=== PATIENT | male | born 1955 | race Caucasian/White ===

== ENCOUNTER 2018-02-13 01:52 | Outpatient (CLI) | payer BC, SELFPAY ==
[2018-02-13 11:39] LABS: Cholesterol 194 mg/dL (50-200); HDL Cholesterol 42 mg/dL (40-60); LDL CHOLESTEROL 147 mg/dL (<100); TSH 1.47 uIU/mL (0.358-3.74); Triglyceride 79 mg/dL (30-150)
== END 2018-02-13 02:12 ==
PROVIDERS: PCP Emergency Medicine; Visit Provider Emergency Medicine
DX: E78.5 Hyperlipidemia, unspecified (principal); E03.9 Hypothyroidism, unspecified
CPT/HCPCS: 36415; 80061; 83721; 84443

== ENCOUNTER 2019-01-29 01:34 | Outpatient (CLI) | payer BC, SELFPAY ==
[2019-01-29 11:32] LABS: Calculated LDL 153 mg/dL; Cholesterol 216 mg/dL (50-200); HDL Cholesterol 40 mg/dL (40-60); TSH 3.53 uIU/mL (0.36-3.74); Triglyceride 118 mg/dL (30-150)
[2019-01-29 12:10] LABS: Hemoglobin A1C 5.1 % (4.5-6.2)
[2019-02-01 10:56] LABS: PSA, Screening 0.3 ng/ml (0-4.5)
== END 2019-01-29 01:54 ==
PROVIDERS: Nurse Practitioner; PCP Emergency Medicine; Visit Provider Emergency Medicine
DX: E03.9 Hypothyroidism, unspecified (principal); Z13.220 Encounter for screening for lipoid disorders; Z13.1 Encounter for screening for diabetes mellitus; Z13.6 Encounter for screening for cardiovascular disorders; Z12.5 Encounter for screening for malignant neoplasm of prostate
CPT/HCPCS: 36415; 80061; 84153; 83036; 84443

== ENCOUNTER 2020-05-10 02:44 | Outpatient (CLI) | payer OTHER, SELFPAY ==
[2020-05-10 13:44] LABS: CREATININE 0.94 mg/dL (0.70-1.30); Calculated LDL 111 mg/dL (<100); Cholesterol 167 mg/dL (<200); HDL Cholesterol 44 mg/dL (40-60); Potassium 4.2 mmol/L (3.5-5.1); TSH 2.56 uIU/mL (0.36-3.74); Triglyceride 64 mg/dL (<150)
== END 2020-05-10 03:04 ==
PROVIDERS: PCP Nurse Practitioner; Visit Provider Nurse Practitioner
DX: I10 Essential (primary) hypertension (principal); E03.9 Hypothyroidism, unspecified; E78.5 Hyperlipidemia, unspecified
CPT/HCPCS: 36415; 80061; 82565; 84132; 84443

== ENCOUNTER 2021-02-20 08:43 | Outpatient (CLI) | payer OTHER, SELFPAY ==
[2021-02-20 13:42] LABS: CREATININE 0.9 mg/dL (0.70-1.30); Calculated LDL 87 mg/dL (<100); Cholesterol 146 mg/dL (<200); HDL Cholesterol 45 mg/dL (40-60); Potassium 5.2 mmol/L (3.5-5.1); TSH 11.59 uIU/mL (0.36-3.74); Triglyceride 70 mg/dL (<150)
[2021-02-20 22:40] LABS: PSA, Screening 0.3 ng/mL (0.0-4.5)
== END 2021-02-20 08:44 | disposition home or self-care (01) ==
LOC: LOS 08:43
PROVIDERS: PCP Nurse Practitioner; Visit Provider Nurse Practitioner
DX: I10 Essential (primary) hypertension (principal); E03.9 Hypothyroidism, unspecified; E78.2 Mixed hyperlipidemia; Z12.5 Encounter for screening for malignant neoplasm of prostate; Z80.42 Family history of malignant neoplasm of prostate
CPT/HCPCS: 36415; 80061; 84153; 82565; 84132; 84443

== ENCOUNTER 2021-04-10 03:05 | Outpatient (CLI) | payer OTHER, SELFPAY | END 2021-04-10 03:06 | disposition home or self-care (01) | LOC: LBO 03:05 | PROVIDERS: PCP Nurse Practitioner; Visit Provider Nurse Practitioner | DX: E03.9 Hypothyroidism, unspecified (principal) | CPT/HCPCS: 36415; 84443 ==

== ENCOUNTER 2022-03-14 03:45 | Outpatient (CLI) | payer OTHER, SELFPAY ==
[2022-03-14 14:19] LABS: CREATININE 0.8 mg/dL (0.70-1.30); Calculated LDL 60 mg/dL (<100); Cholesterol 123 mg/dL (<200); Estimated GFR 98.83 (mL/min/1.73m2); HDL Cholesterol 43 mg/dL (40-60); Potassium 4.1 mmol/L (3.5-5.1); TSH (W/Ref FT4) 2.64 uIU/mL (0.36-3.74); Triglyceride 100 mg/dL (<150)
== END 2022-03-14 03:46 | disposition home or self-care (01) ==
LOC: LBO 03:45
PROVIDERS: PCP Nurse Practitioner Family; Visit Provider Nurse Practitioner Family
DX: I10 Essential (primary) hypertension (principal); E03.9 Hypothyroidism, unspecified; E78.5 Hyperlipidemia, unspecified
CPT/HCPCS: 36415; 80061; 82565; 84132; 84443

== ENCOUNTER 2023-03-14 09:35 | Outpatient (CLI) | payer MEDICARE, OTHER, SELFPAY ==
[2023-03-14 13:10] LABS: Calculated LDL 77 mg/dL (<100); Cholesterol 136 mg/dL (<200); Estimated GFR 83.52 (mL/min/1.73m2); HDL Cholesterol 41 mg/dL (40-60); Potassium 4.1 mmol/L (3.5-5.1); TSH (W/Ref FT4) 6.45 uIU/mL (0.36-3.74); Triglyceride 93 mg/dL (<150)
== END 2023-03-14 09:36 | disposition home or self-care (01) ==
PROVIDERS: PCP Nurse Practitioner Family; Referring Provider Nurse Practitioner Family; Visit Provider Nurse Practitioner Family
DX: E78.5 Hyperlipidemia, unspecified (principal); I10 Essential (primary) hypertension; E03.9 Hypothyroidism, unspecified
CPT/HCPCS: 36415; 80061; 82565; 84132; 84439; 84443

== ENCOUNTER → 2023-03-20 01:22 | Outpatient (CLI) | payer MEDICARE, OTHER, SELFPAY ==
--- NOTE | 2023-03-20 08:45 | DI.CTLCSR_ITS ---
Exam(s) CT CHEST LUNG CANCER SCREEN EXAM: CT CHEST LUNG CANCER SCREEN CLINICAL HISTORY: Screening for lung cancer,FORMER SMOKER, Z87.891 TECHNIQUE: Imaging Protocol: Axial computed tomography images with coronal and sagittal reformatted images were created and reviewed. Low dose screening protocol. COMPARISON: No exams were available for comparison FINDINGS: Tracheobronchial tree: No bronchiectasis or mucus plugging.. Mediastinum and Fabienne: No dominant adenopathy or fluid collection. Pulmonary parenchyma: No consolidation or dominant measurable mass. Mild emphysematous changes. Lung Nodules: None. Pleura: No effusion. No pneumothorax. Heart: The heart is mildly dilated. Mild coronary artery calcifications are seen. Aorta: Thoracic aorta non-dilated. Upper abdomen: Gallstones. Bones: Unremarkable for age. Soft Tissues: Unremarkable. IMPRESSION: No suspicious pulmonary nodules. Lung RADS Cat 1 - Negative: No nodules and definitely benign nodules Lung-RADS 1.0 CATEGORIES: Category 0 - Prior chest CT exam(s) being located for comparison. Category 1 - Annual screening in 12 months. No nodules or definitely benign nodules. Category 2 - Annual screening in 12 months. Benign appearance. Nodules with low likelihood of becomin g active cancer. Category 3 - 6-month follow-up. Probably benign. Short-term follow-up suggested. Nodules with low lik elihood of becoming active cancer. Category 4A - 3-month follow-up and CT/PET if >8 mm in size. Suspicious finding. Findings which requi re additional testing. Category 4B - Findings which require additional testing and tissue sampling. Category 4X - Category 3 or 4 nodules with additional features or imaging findings that increases the suspicion of malignancy. Modifier S- Potentially clinically significant findings (non lung cancer) RADIATION DOSE DELIVERED: Total DLP DATA REPOSITORY: All CT scans at this facility are submitted to the National Radiology Data Registry (NRDR) Dose Index Registry (DIR) with the [employer] (ACR). RADIATION OPTIMIZATION: All CT scans at this facility use at least one of these dose optimization te chniques: automated exposure control; mA and/or kV adjustment per patient size (includes targeted exa ms where dose is matched to clinical indication); or iterative reconstruction.
== END ==
PROVIDERS: PCP Nurse Practitioner Family; Visit Provider Nurse Practitioner Family
DX: Z87.891 Personal history of nicotine dependence (principal); Z12.2 Encounter for screening for malignant neoplasm of respiratory organs
CPT/HCPCS: 71271

== ENCOUNTER → 2023-04-23 09:26 | Outpatient (BNVA) | payer MEDICARE, OTHER, SELFPAY | PROVIDERS: PCP Nurse Practitioner Family; Referring Provider Nurse Practitioner Family; Visit Provider Physical Therapy Assistant | DX: Z12.11 Encounter for screening for malignant neoplasm of colon (principal) ==

== ENCOUNTER 2023-05-02 09:49 | Day surgery (SDC) | payer MEDICARE, OTHER, SELFPAY ==
--- NOTE | 2023-05-01 16:54 | W.ANESPRE ---
General Info Date of Service Date Performed: 05/02/23 Height: 5 ft 7 in Weight: 88.904 kg Body Mass Index (BMI): 30.7 Surgical Procedure: Operation Date: 05/02/23 11:35 Proposed Procedure Side Surgeon p Colonoscopy Gray Conway MD Meds Allergies and Home Medications Allergies Allergy/AdvReac Type Severity Reaction Status Date / Time No Known Allergies Allergy Verified 05/02/23 10:17 Home Medication Medication Instructions Recorded aspirin 325 mg tablet 325 mg PO DAILY 07/20/12 vit C 226 mg-vit E 90 mg-copper 1 ea PO BID 02/09/16 0.8 mg-zinc oxide-lutein 5 mg capsule (PreserVision Lutein) glucosamine 750 mg-chondroit 100 2 tab PO DAILY 02/15/20 mg-msm-D3 25 eiy-lzza-hpm bor tablet atorvastatin 20 mg tablet 20 mg PO QHS #90 tabs 08/16/22 levothyroxine 150 mcg tablet 150 mcg PO DAILY #90 tabs 08/16/22 lisinopril 10 mg tablet 10 mg PO DAILY #90 tabs 08/16/22 ibuprofen 800 mg tablet 800 mg PO TID PRN pain #180 03/26/23 tab-caps bisacodyl 5 mg tablet,delayed 5 mg PO ONCE colonscopy bowel prep 04/23/23 release (Dulcolax (bisacodyl)) #4 tabs polyethylene glycol 3350 17 238 g PO ONCE colonoscopy prep 04/23/23 gram/dose oral powder #238 grams Current Visit Medications: Current Medications Generic Name Dose Route Start Last Admin Trade Name Freq PRN Reason Stop Dose Admin Ringer's Solution 1,000 mls @ 80 mls/hr 05/02/23 06:00 IV 05/02/23 23:59 INFUSION RAMON IV Miscellaneous Supplies 1 each 05/02/23 06:00 Iv Access IV 05/02/23 23:59 DIRECTED RAMON Sodium Chloride 0 ml 05/02/23 06:00 Normal Saline Flush 10 Ml Syr IV 05/02/23 23:59 PRN PRN Sodium Chloride 0 ml 05/02/23 06:00 Normal Saline 10 Ml Vial IJ 05/02/23 23:59 DIRECTED PRN Sterile Water 0 ml 05/02/23 06:00 Water,Injection,Sterile 10 Ml Vial IJ 05/02/23 23:59 DIRECTED PRN PFSH Active Problems Active Problems: Problem Status Onset Code Dry skin dermatitis L85.3 Essential hypertension I10 Tinnitus H93.19 Hypothyroidism E03.9 Hyperlipidemia E78.5 Hearing loss H91.90 Family history of prostate cancer in father 02/09/16 Z80.42 Diverticulosis of colon without diverticulitis K57.30 Medical History Medical History History of tobacco use 18 pack years Umbilical hernia Repaired surgically Surgical History Surgical History History of umbilical hernia repair Repair of umbilical hernia (~08/2012) Colonoscopy - MAC (03/28/17) DIVERTICULOSIS Colonoscopy - MAC (~08/2005) DIVERTICULOSIS Tobacco Smoking/Tobacco Use Status: Former Tobacco Use Smokeless tobacco user: chewing tobacco Passive smoking exposure: Yes Second hand exposure: Yes Alcohol Alcohol Intake: former Substance Use Substance use: Never Substance use type: does not use Vital Signs and Lab Results Vital Signs Most Recent Vital Signs in EMR: Temp Pulse Resp BP Pulse Ox 36.4 C L 74 18 157/94 H 96 05/02/23 10:05 05/02/23 10:05 05/02/23 10:05 05/02/23 10:05 05/02/23 10:05 Lab Results Blood Type / Crossmatch: No Data to Display Complete Blood Count: No Data to Display Complete Metabolic Panel: No Data to Display Liver Function Panel: No Data to Display Coagulation Panel: No Data to Display Cardiac Panel: No Data to Display Arterial Blood Gas: No Data to Display Venous Blood Gas: No Data to Display Pancreas Panel: No Data to Display Thyroid Panel: No Data to Display Infectious Disease: No Data to Display Blood Cultures: No Data to Display Toxicology Panel: No Data to Display Anesthesia Assessment and Plan Anesthesia History Personal History: No History of Anesthesia Complications Family History: No Family History of Anesthesia Complications Exercise Tolerance Exercise Tolerance: Metabolic Equivalents>4 Pertinent Negatives Pertinent Negatives: No Symptoms of GERD Cardiac & Pulmonary Exam Cardiac Exam: Normal S1/S2 Heart Sounds Pulmonary Exam: Clear Bilateral Breath Sounds Implantable Cardiac Device Does patient have a Pacemaker or an ICD?: No Airway Exam Known Difficult Airway: No Mallampati Class: 2 Mouth Opening: Normal (> 3cm) Thyromental Distance: Greater than 3 cm Neck Range of Motion: Full ROM Neck Circumference: Normal Teeth Condition: Normal Dentition ASA Classification ASA Score: ASA 2 Emergency Case?: No NPO Status NPO Status: NPO Clears >2 hours, Solids >8 hours Anesthesia Plan Resuscitation Status: Full Code Anesthesia Technique: General Anesthesia Airway Planned: Natural Airway Monitors Used: Standard Monitors Preoperative Comments:: 67 yo male for colo. Sig PMHx: HTN, hypothyroid, former smoker, chewing tobacco, Previous Anes: - colo, prop, natural airway, no issues.
[2023-05-02 10:05] VITALS: BP 157/94; PULSE 74; RESP 18; TEMP 36.4; O2SAT 96
[2023-05-02 10:31] VITALS: BMI 30.7
[2023-05-02] MEDS: Lactated Ringers 1,000 ML 80 ML IV (10:38)
--- NOTE | 2023-05-02 11:02 | W.PM.DSUDISC ---
Date of service: 05/02/23 Time of Service: 11:02 Discharge Plan Disposition Patient Disposition: Home Condition: Good Discharge Details Attending Provider: Gray Conway Primary Care Provider: Pb Mckay Home Meds and New Rx's Prescriptions: No Action bisacodyl [Dulcolax (bisacodyl)] 5 mg tablet,delayed release (DR/EC) 5 mg PO ONCE Qty: 4 0RF Rx Instructions: take per colonoscopy instructions polyethylene glycol 3350 17 gram/dose powder 238 g PO ONCE Qty: 238 0RF Rx Instructions: take per colonoscopy instructions krxw-viqkg-vxi-D3-hyal-bossman bor 750 mg-100 mg- 25 mcg tablet 2 tab PO DAILY aspirin 325 MG tablet 325 mg PO DAILY PreserVision Lutein 1 EACH capsule 1 ea PO BID atorvastatin 20 mg tablet 20 mg PO QHS Qty: 90 3RF levothyroxine 150 mcg tablet 150 mcg PO DAILY Qty: 90 4RF lisinopril 10 mg tablet 10 mg PO DAILY Qty: 90 4RF ibuprofen 800 mg tablet 800 mg PO TID PRN (Reason: pain) Qty: 180 3RF Discharge Instructions Additional Instructions: FINDINGS: A couple of small, benign?appearing polyps were seen. I do not think these have any risk for you. You are at increased risk because of your family history and for that reason you should stay on a 5-year follow-up. Diverticular disease was seen today. This is extremely common, benign and nothing needs to be done about it. Mild hemorrhoid disease was also seen today. This is also extremely common, benign and nothing needs to be done about it. Stand Alone Forms: Anesthesia Discharge Inst., Colonoscopy Post Instructions, Kathleen Guerin (DSU) Activity:: Activity as Tolerated Diet:: As Tolerated
--- NOTE | 2023-05-02 11:03 | W.COLOREPORT ---
Date of service: 05/02/23 Time of Service: 11:03 Colonoscopy Report Procedure Description: PROCEDURES PERFORMED: 1. Colonoscopy with cold forceps polypectomy PREOPERATIVE DIAGNOSIS: Surveillance colonoscopy, family history colon polyps POSTOPERATIVE DIAGNOSIS: Pandiverticulosis, grade 1 internal hemorrhoids, hyperplastic colorectal polyps SURGEON: Jefe Conway MD INDICATION for procedure: The patient is a 67-year-old man due for surveillance colonoscopy. He has no symptoms. Both parents had adenomatous polyps removed on numerous occasions. He is on a 5-year follow-up. He thinks he has had polyps removed from his colon before. FINDINGS: Normal terminal ileum. There are diverticular changes throughout the entire colon. The sigmoid/left colon has moderate to significant diverticulosis. No active disease or inflammation. In the distal sigmoid and rectum are small, flat, hyperplastic?appearing polyps. I removed 1 to confirm benign histology. Grade 1 internal hemorrhoids noted. SURVEILLANCE interval/FOLLOW-UP: 5 years considering the family and personal history. SPECIMENS: yes EBL: Minimal COMPLICATIONS: None QUALITY of prep: Excellent Procedure in detail: The patient gave written consent and was in agreement with the indications, the potential risks as well as the benefits of the procedure. They taken to the endoscopy suite and laid in the left lateral decubitus position. A timeout was performed and anesthesia was administered which was tolerated well. I started the procedure. Digital rectal and visual examination was performed and grossly within normal limits. A well-lubricated flexible colonoscope was then introduced and passed without any notable difficulty all the way to the cecum identified by the ileocecal valve and the appendiceal orifice. The terminal ileum was intubated and looked normal. The scope was then slowly withdrawn with the above-noted findings. The patient tolerated the procedure well and was taken to the PACU in hemodynamically stable condition.
--- NOTE | 2023-05-02 12:06 | BOWEL_PTH ---
PATIENT: Dallas Garcia LOC: [facility] U#:[id number] AGE/SX: 67/M ROOM: RE05/02/[address]: Gray Conway : 1955 BED: DIS: 05/02/2023 SPEC #: [id number] RECD: 05/02/23 13:02 STATUS: PAO TILLEY #: [id number] ELINA: 05/02/23 12:[address]: Gray Conway DEPT: Surgical Specimen RECD BY: Bella Lundberg ENTERED: 05/02/23 13:03 SP TYPE: Bowel OTHR DR: Pb Mckay, CUSTOMER SERVICE OPERATOR Tissues: 1 - BIOPSY BOWEL Procedures: GROSS AND MICRO LEVEL 4 Comments: [id number]
[2023-05-02 12:16] VITALS: BP 111/78; PULSE 72; RESP 16; TEMP 36.5; O2SAT 96
--- NOTE | 2023-05-02 12:21 | W.ANESPOSTOP ---
Postoperative Evaluation Date, Time and Location Date Performed: 05/02/23 Time Performed: 12:21 Patient Location: Day Surgery Unit Vital Signs Most Recent Imported Vital Signs: Most Recent Vital Signs Temp Pulse Resp BP Pulse Ox 36.5 C 72 16 111/78 96 05/02/23 12:16 05/02/23 12:16 05/02/23 12:16 05/02/23 12:16 05/02/23 12:16 Pain Score Most Recent Pain Score: Most Recent Pain Score Pain Level 0 05/02/23 12:16 Assessment Mental Status: Awake (Alert & Oriented to Patient Baseline) Airway and Respiratory Function: Patent airway with normal (patient baseline) respiratory exam Cardiovascular Function: Hemodynamically Stable Hydration Status: Adequately Hydrated Nausea & Vomiting: No Nausea or Vomiting Pain: Pt. Denies Any Pain Peripheral Nerve Block: Patient did not receive a nerve block
[2023-05-02 12:28] VITALS: BP 117/83; PULSE 69; RESP 18; TEMP 36.6; O2SAT 97
== END 2023-05-02 12:52 | disposition home or self-care (01) ==
PROVIDERS: PCP Nurse Practitioner Family; Visit Provider Student in an Organized Health Care Education/Training Program
PROC: 0DJD8ZZ Inspection of Lower Intestinal Tract, Via Natural or Artificial Opening Endoscopic (ICD-10-PCS; CPT 45378; principal; 2023-05-02 11:30)
DX: Z12.11 Encounter for screening for malignant neoplasm of colon (principal); K63.5 Polyp of colon; K57.30 Diverticulosis of large intestine without perforation or abscess without bleeding; K64.0 First degree hemorrhoids; I10 Essential (primary) hypertension; E03.9 Hypothyroidism, unspecified; Z87.891 Personal history of nicotine dependence
CPT/HCPCS: 45380; 00123; 88305; J2704

== ENCOUNTER 2023-10-17 12:39 | Emergency (ER) | payer OTHER, MEDICARE, SELFPAY ==
[2023-10-17] VITALS (17 sets, daily range): BP systolic 146–188; BP diastolic 75–93; PULSE 48–58; RESP 10–18; TEMP 36.3; O2SAT 94–98
--- NOTE | 2023-10-17 12:30 | RT.EKG_ITS ---
APPROVED REPORT Exam: Resting ECG Reason for Exam: TBI Patient Location: E HR:60 bpm ECG Measurements Heart Rate 60 AXIS AZ 197 P 61 QRSd 120 QRS -75 QT 441 T 59 QTc 439 Conclusion Sinus rhythm...normal P axis, V-rate 60- 99 Left anterior fascicular block...axis(240,-40), init forces inf I have reviewed and interpreted ECG and agree with software generated interpretation.
[2023-10-17 12:56] LABS: Abs Immature Grans 0.04 10^3/uL (0.0-0.06); Absolute Basophil Count 0.04 10^3/uL (0.0-0.2); Absolute Eosinophil Count 0.02 10^3/uL (0.0-0.7); Absolute Lymphocyte Count 1.25 10^3/uL (1.2-3.4); Absolute Monocyte Count 0.87 10^3/uL (0.1-0.8); Absolute Neutrophil Count 8.44 10^3/uL (1.2-6.7); Basophils % 0.4 %; Eosinophils % 0.2 %; HCT 40.5 % (40.0-50.0); HGB 14.4 g/dL (13.5-17.5); Immature Grans % 0.4 %; Lymphocytes % 11.7 %; MCH 31.6 pg (27.0-33.0); MCHC 35.6 % (32.0-36.0); MCV 89 fL (80-95); Monocytes % 8.2 %; Neutrophils % 79.1 %; Platelet Count 340 10^3/uL (130-400); RBC 4.55 10^6/uL (4.36-5.78); RDW 12.2 % (11.8-14.1); RDW-SD 39.9 fL; WBC 10.66 10^3/uL (4.4-10.8)
[2023-10-17 13:06] LABS: BE (Venous) -1 mmol/L (-2-3); HCO3 (Venous) 25 mmol/L (23-28); O2 Sat (Venous) 42 %; TCO2 (Venous) 26 mmol/L (24-29); pCO2 (Venous) 44 mmHg (41-51); pH (Venous) 7.36 (7.31-7.41); pO2 (Venous) 25 mmHg
[2023-10-17] MEDS: Lactated Ringers 1,000 ML 1000 ML IV (13:15)
[2023-10-17] MEDS: Omnipaque 350 MG/ML 100 ML BTL 85 ML IJ (13:18)
[2023-10-17 13:19] LABS: INR 1.2 (0.9-1.1); PTT Activated 29.7 sec (23.6-32.8); Prothrombin Time 11.7 sec (9.1-11.1)
[2023-10-17] MEDS: Normal Saline - Diluent 50 ML VIAL IJ (13:19)
--- NOTE | 2023-10-17 13:19 | DI.CT_ITS ---
Exam(s) CT BRAIN NECK CTA EXAM: CT BRAIN NECK CTA CLINICAL HISTORY: recent subdurals, altered, expressive aphasia. TECHNIQUE: Imaging Protocol: Axial CT angiography was performed with multi-slice acquisition and mu lti-planar and/or 3D reconstructions. CONTRAST MATERIAL: Intravenous: Omnipaque 350 Contrast volume:structured data in ml COMPARISON: No exams were available for comparison FINDINGS: CTA Neck W: Aortic arch anatomy: The aortic arch anatomy is conventional and there is no significant stenosis at the origin of the great vessels off of the aortic arch. No intimal flap evident. Anterior circulation: Both common carotid arteries ascend with normal luminal diameters. There is mild plaque at the carotid bulb right side. No significant stenosis at this level nor in th e proximal right ICA and the right ICA in the upper neck is nicely patent. On the opposite-left side there is also mild plaque at the carotid bulb-proximal left ICA without significant stenosis. Estim ated stenosis is approximately 10 percent bilaterally. The left ICA in the upper neck is nicely adrian nt. Posterior circulation: The dominant right vertebral artery originates in conventional fashion off of the right subclavian ar bernie without significant stenosis at its origin. The slightly thinner left vertebral artery originat es as an independent vessel off the aortic arch. Both are patent in the foramen transverse area with out evidence of intraluminal thrombus nor dissection and both vertebral arteries contribute to the fo rmation of the basilar artery at the skull base. CTA Brain W: Anterior circulation: Both internal carotid arteries are patent in the skull base-carotid canals as well as within the cave rnous sinuses. The supraclinoid aspects of the ICAs are patent. Both A1 segments are patent as are the anterior cer ebral arteries and there is no evidence of aneurysm at the level of the anterior communicating artery . Both middle cerebral arteries are patent with no evidence of significant stenosis nor intraluminal th rombus. There also no aneurysms of these vessels. Posterior circulation: Basilar artery ascends in the midline without significant focal stenosis. Distally it terminates as patent bilateral posterior cerebral arteries There is no evidence of aneurysm at the tip of the basilar artery nor elsewhere in the hvfxnn-hf-Lype is. CT BRAIN: There is an acute hyperdense subdural hematoma over the left convexity exhibiting maximum thickness 1 1 mm., This over the parietal lobe region; thinner more anteriorly. There is some hips: Edema in the brain, most prominent in the left temporal lobe middle cranial fossa region. Ventricles are not enl arged and do not contain blood. There is approximately 2 millimeters rightward shift of midline stru ctures. IMPRESSION: 1. Acute left-sided convexity subdural hematoma. Maximum thickness is 11 millimeters, as described a domonique.. There is effacement of sulci and white matter edema and mild 2 mm rightward shift of midline structures. 2. Patent carotid and vertebral arteries in the neck. Approximately 10 percent stenosis at the jones tid bifurcations bilaterally. Left vertebral artery is noted to originate as an independent vessel o ff the aortic arch 3. Patent intracranial arteries. Called by myself to ER RADIATION DOSE DELIVERED: 2,108.84mGy.cm Total DLP DATA REPOSITORY: All CT scans at this facility are submitted to the National Radiology Data Registry (NRDR) Dose Index Registry (DIR) with the [employer] (ACR). RADIATION OPTIMIZATION: All CT scans at this facility use at least one of these dose optimization te chniques: automated exposure control; mA and/or kV adjustment per patient size (includes targeted exa ms where dose is matched to clinical indication); or iterative reconstruction.
--- NOTE | 2023-10-17 13:26 | ED.GENADUL_ITS ---
Discharge Plan Disposition Patient Disposition: Transfer-Acute Inpatient Care Specific Acute Inpt Facility: [facility] Condition: Serious Discharge Details Chief Complaint: AMS/LOC Clinical Impression: Chronic subdural hematoma, Dysarthria, Expressive aphasia Primary Care Provider: Pb Mckay ED Provider: Kory Leyva Home Meds and New Rx's Prescriptions: No Action bisacodyl [Dulcolax (bisacodyl)] 5 mg tablet,delayed release (DR/EC) 5 mg PO ONCE Qty: 4 0RF Rx Instructions: take per colonoscopy instructions polyethylene glycol 3350 17 gram/dose powder 238 g PO ONCE Qty: 238 0RF Rx Instructions: take per colonoscopy instructions [id number]-irw-[id number]-hyal-bossman bor 750 mg-100 mg- 25 mcg tablet 2 tab PO DAILY aspirin 325 MG tablet 325 mg PO DAILY PreserVision Lutein 1 EACH capsule 1 ea PO BID ibuprofen 800 mg tablet 800 mg PO TID PRN (Reason: pain) Qty: 180 3RF atorvastatin 20 mg tablet 20 mg PO QHS Qty: 90 3RF lisinopril 10 mg tablet 10 mg PO DAILY Qty: 90 4RF levothyroxine 150 mcg tablet 150 mcg PO DAILY Qty: 90 4RF HPI General Date/Time Provider Initiated Documentation: 10/17/23 12:39 . HPI Narrative: 68-year-old male with past medical history of recent 20 foot fall, hitting his head with comminuted temporal bone fractures and intracranial hemorrhages with a left to right midline shift and previous left hemispheric sulcal effacement on 10/09/2023, was eventually discharged home not currently on any anticoagulants. He was given a prescription for Keppra 1000 mg twice daily, who presents today for altered mental status. Patient had been doing well until this morning when he awoke and was slightly tired and mildly confused. He was still able to perform many of his activities, and took a shower. However later in the day at around 9 AM he suddenly began to stop speaking. Family contacted [facility] and they recommended further evaluation in the emergency department. Patient was eventually brought here via EMS a few hours later. Currently the patient is not able to speak clearly at all. Unable to get any history from the patient otherwise. Family denies any falls since discharge from [facility]. They deny any medication changes. They deny any other complaints or historical components. Related Data Home Medications Medication Instructions Recorded Confirmed aspirin 325 mg tablet 325 mg PO DAILY 07/20/12 05/01/23 vit C 226 mg-vit E 90 mg-copper 1 ea PO BID 02/09/16 05/02/23 0.8 mg-zinc oxide-lutein 5 mg capsule (PreserVision Lutein) glucosamine 750 mg-chondroit 100 2 tab PO DAILY 02/15/20 05/02/23 mg-msm-D3 25 gaw-usec-tsq bor tablet ibuprofen 800 mg tablet 800 mg PO TID PRN pain #180 03/26/23 05/01/23 tab-caps bisacodyl 5 mg tablet,delayed 5 mg PO ONCE colonscopy bowel prep 04/23/23 05/02/23 release (Dulcolax (bisacodyl)) #4 tabs polyethylene glycol 3350 17 238 g PO ONCE colonoscopy prep 04/23/23 05/02/23 gram/dose oral powder #238 grams atorvastatin 20 mg tablet 20 mg PO QHS #90 tabs 07/14/23 levothyroxine 150 mcg tablet 150 mcg PO DAILY #90 tabs 09/17/23 lisinopril 10 mg tablet 10 mg PO DAILY #90 tabs 09/17/23 Previous Rx's Medication Instructions Recorded ibuprofen 800 mg tablet 800 mg PO TID PRN pain #180 03/26/23 tab-caps bisacodyl 5 mg tablet,delayed 5 mg PO ONCE colonscopy bowel prep 04/23/23 release (Dulcolax (bisacodyl)) #4 tabs polyethylene glycol 3350 17 238 g PO ONCE colonoscopy prep 04/23/23 gram/dose oral powder #238 grams atorvastatin 20 mg tablet 20 mg PO QHS #90 tabs 07/14/23 levothyroxine 150 mcg tablet 150 mcg PO DAILY #90 tabs 09/17/23 lisinopril 10 mg tablet 10 mg PO DAILY #90 tabs 09/17/23 Allergies Allergy/AdvReac Type Severity Reaction Status Date / Time No Known Allergies Allergy Verified 05/02/23 10:17 General Stated Complaint: AMS/LOC VIANEY: 2 Review of Systems All systems reviewed & are unremarkable except as noted in HPI and below Exam Narrative Exam Narrative: 1.Const: Well-nourished, Well-developed, appearing stated age 2.Eyes: PERRL, no conjunctival injection, and symmetrical lids. 3.ENT: C-collar in place, left external ear canal demonstrates cerumen with what appears to be old dried blood. No red blood. Right tympanic membrane is mccarthy and pearly. No abnormalities. No evidence of acute contusions or trauma to the scalp or head. 4.CVS: +S1/S2, No murmurs or gallops. Peripheral pulses 2+ and equal in all extremities. Brisk capillary refill in all extremities. 5.RESP: Unlabored respiratory effort. Clear to auscultation bilaterally. No wheezes rales or rhonchi 6.GI: Soft, Nontender/Nondistended, No hepatosplenomegaly. No guarding or rebound. 7.MSK: Patient able to move upper and lower extremities without difficulty. No focal weakness for the upper or lower extremities. Normal upsetter setter up strength. No signs of trauma. No midline cervical thoracic or lumbar spine tenderness. No acute rib tenderness. 8.Skin: Warm, Dry. No rashes or lesions. 9.Neuro: health science specialist II-XII grossly intact, except for speech. Patient is unable to verbalize clearly. Only a few notably unclear words are able to be expressed, and he has minimal verbal response otherwise. That being said he demonstrates a notably intact gag reflex. He is able to protect his airway well. Sensation grossly intact, Patient is able to follow commands of raising his arms and legs. As well as upsetter setter up strength. Course Vital Signs Vital signs: Vital Signs Temperature 36.3 C L 10/17/23 12:39 Pulse 56 L 10/17/23 12:39 Respiratory Rate 18 10/17/23 12:39 Blood Pressure 166/88 H 10/17/23 12:39 Pulse Oximetry 98 10/17/23 12:39 Temperature 36.3 C L 10/17/23 12:39 Pulse 56 L 10/17/23 12:39 Respiratory Rate 16 10/17/23 13:21 Respiratory Effort Normal 10/17/23 13:21 Respiratory Depth Normal 10/17/23 13:21 Respiratory Pattern Normal 10/17/23 13:21 Blood Pressure 166/88 H 10/17/23 12:39 Pulse Oximetry 98 10/17/23 12:39 Oxygen Delivery Method Room Air 10/17/23 12:39 Oxygen Flow Rate 0 10/17/23 12:39 Lab/Test Results Lab/Test Results: Laboratory Tests Range/Units 10/17/23 12:50 WBC (4.4-10.8) 10^3/uL 10.66 RBC (4.36-5.78) 10^6/uL 4.55 Hgb (13.5-17.5) g/dL 14.4 Hct (40.0-50.0) % 40.5 MCV (80-95) fL 89 MCH (27.0-33.0) pg 31.6 MCHC (32.0-36.0) % 35.6 RDW (11.8-14.1) % 12.2 Plt Count (130-400) 10^3/uL 340 MPV (8.0-11.0) fL 9.0 Immature Gran % % 0.4 Neutrophils % % 79.1 Lymphocytes % % 11.7 Monocytes % % 8.2 Eosinophils % % 0.2 Basophils % % 0.4 Nucleated RBC % (0.0-0.3) % 0.0 Absolute Neutrophils (1.2-6.7) 10^3/uL 8.44 H Absolute Lymphocytes (1.2-3.4) 10^3/uL 1.25 Absolute Monocytes (0.1-0.8) 10^3/uL 0.87 H Absolute Eosinophils (0.0-0.7) 10^3/uL 0.02 Absolute Basophils (0.0-0.2) 10^3/uL 0.04 PT (9.1-11.1) sec 11.7 H INR (0.9-1.1) 1.2 H APTT (23.6-32.8) sec 29.7 VBG pH (7.31-7.41) 7.36 VBG pCO2 (41-51) mmHg 44 VBG pO2 mmHg 25 VBG HCO3 (23-28) mmol/L 25 VBG Total CO2 (24-29) mmol/L 26 VBG O2 Saturation % 42 VBG Base Excess (-2-3) mmol/L -1 Medical Decision Making 68-year-old male with past medical history of recent 20 foot fall, h itting his head with comminuted temporal bone fractures and intracranial hemorrhages with a left to right midline shift and previous left hemispheric sulcal effacement on 10/09/2023, was eventually discharged home not currently on any anticoagulants. He was given a prescription for Keppra 1000 mg twice daily, who presents today for altered mental status. Patient had been doing well until this morning when he awoke and was slightly tired and mildly confused. He was still able to perform many of his activities, and took a shower. However later in the day at around 9 AM he suddenly began to stop speaking. Family contacted [facility] and they recommended further evaluation in the emergency department. Patient was eventually brought here via EMS a few hours later. Currently the patient is not able to speak clearly at all. Unable to get any history from the patient otherwise. Family denies any falls since discharge from [facility]. They deny any medication changes. They deny any other complaints or historical components. Concern for worsening of previous bleed, seizure is on differential as well. Electrolyte abnormality including sodium abnormalities on the differential. Will evaluate for these etiologies, monitor closely, reassess, get a CT scan of the head and neck. 1:26 PM CTA was initially ordered but then immediately canceled by myself, then transition to a Noncon of the head and C-spine. This order change was made prior to the patient being transported to radiology. I did just receive a call from radiology stating that CTA of the head was done despite it being canceled, and not the Noncon studies that were ordered. 2:[address]/CTA shows no evidence of acute fracture. There does appear to be notable subdural hematoma, but no evidence of large thrombus. Good flow was noted through the MCAs and other independent vessels. Laboratory workup shows no electrolyte abnormalities, platelets are normal, renal function normal. Thyroid function normal, troponin normal, alcohol level negative. I did contact [facility] and discussed the case with Dr. Hair of neurosurgery. She reviewed the images personally and feel that they actually look slightly better. She is concerned that there may be a component of seizure causing his atypical symptoms as well. He is certainly not a candidate for TNK or tPA. Ischemic stroke is on the differential but less likely. Neurosurgery would like to evaluate the patient in the ER right away. I did contact the ED physician Dr. Singleton, she accepts the patient for transfer. Patient will be loaded with 2 g of Keppra. He is respiratory status remains notably intact, gag reflex remains notably intact. No indication for intubation at this time as there is no actively declining mental status or acute change in mental status at this time. He remained stable and follows commands but still continues to have the expressive aphasia and dysarthria. We do not have any exhaust machine operator level transport available at this time. We will contact [facility] for transfer. I have extensively reviewed the treatment plan with the patient. I have addressed all patient concerns at this time. I have also discussed the plan with the admitting physician and they agree with the current assessment and plan and have agreed to assume responsibility for the patient. All parties demonstrate verbal understanding and agreement with our assessment and plan at this time. The documentation in this chart was dictated using [employer] dictation software. Please excuse any dictation errors. At time of transfer the patient was reassessed and continued to demonstrate No signs of acute respiratory distress requiring intubation, hemodynamic instability requiring pressor support, or rapidly declining mental status. FINDINGS: CTA Neck W: Aortic arch anatomy: The aortic arch anatomy is conventional and there is no significant stenosis at the origin of the great vessels off of the aortic arch. No intimal flap evident. Anterior circulation: Both common carotid arteries ascend with normal luminal diameters. There is mild plaque at the carotid bulb right side. No significant stenosis at this level nor in the proximal right ICA and the right ICA in the upper neck is nicely patent. On the opposite-left side there is also mild plaque at the carotid bulb-proximal left ICA without significant stenosis. Estimated stenosis is approximately 10 percent bilaterally. The left ICA in the upper neck is nicely patent. Posterior circulation: The dominant right vertebral artery originates in conventional fashion off of the right subclavian artery without significant stenosis at its origin. The slightly thinner left vertebral artery originates as an independent vessel off the aortic arch. Both are patent in the foramen transverse area without evidence of intraluminal thrombus nor dissection and both vertebral arteries contribute to the formation of the basilar artery at the skull base. CTA Brain W: Anterior circulation: Both internal carotid arteries are patent in the skull base-carotid canals as well as within the cavernous sinuses. The supraclinoid aspects of the ICAs are patent. Both A1 segments are patent as are the anterior cerebral arteries and there is no evidence of aneurysm at the level of the anterior communicating artery. Both middle cerebral arteries are patent with no evidence of significant sten osis nor intraluminal thrombus. There also no aneurysms of these vessels. Posterior circulation: Basilar artery ascends in the midline without significant focal stenosis. Distally it terminates as patent bilateral posterior cerebral arteries There is no evidence of aneurysm at the tip of the basilar artery nor elsewhere in the [id number]. CT BRAIN: There is an acute hyperdense subdural hematoma over the left convexity exhibiting maximum thickness 11 mm., This over the parietal lobe region; thinner more anteriorly. There is some hips: Edema in the brain, most prominent in the left temporal lobe middle cranial fossa region. Ventricles are not enlarged and do not contain blood. There is approximately 2 millimeters rightward shift of midline structures. IMPRESSION: 1. Acute left-sided convexity subdural hematoma. Maximum thickness is 11 millimeters, as described above.. There is effacement of sulci and white matter edema and mild 2 mm rightward shift of midline structures. 2. Patent carotid and vertebral arteries in the neck. Approximately 10 percent stenosis at the carotid bifurcations bilaterally. Left vertebral artery is noted to originate as an independent vessel off the aortic arch 3. Patent intracranial arteries. Quality:SDOH Health Related Social Needs: No Data to Display Critical Care Time Critical Care Time Critical Care Time: Yes Total Critical Care Time: 60 Attestation: Upon my evaluation, this patient had a high probability of imminent or life- threatening deterioration, which required my direct attention, intervention, and personal management. I have personally provided 60 minutes of critical care time exclusive of time spent on separately billable procedures. Time includes review of laboratory data, radiology results, discussion with consultants, and monitoring for potential decompensation. Interventions were performed as documented. PFS All Active Problems (Updated 10/17/23 @ 15:22 by Kory Leyva DO) Expressive aphasia (Acute) Dysarthria (Acute) Chronic subdural hematoma (Acute) Dry skin dermatitis (Acute) Essential hypertension (Acute) Tinnitus (Acute) Hypothyroidism (Acute) Hyperlipidemia (Acute) Hearing loss (Acute) Family history of prostate cancer in father (Acute 02/09/16) Diverticulosis of colon without diverticulitis (Acute) Medical History Hyperplastic colon polyp (~04/2023) History of tobacco use 18 pack years Umbilical hernia Repaired surgically Surgical History History of umbilical hernia repair Repair of umbilical hernia (~08/2012) Colonoscopy - MAC (04/2023) path sent Colonoscopy - MAC (~08/2005) DIVERTICULOSIS Family History Mother Diabetes Essential hypertension Heart disease Hyperlipidemia Father , age 73 Heart disease Hyperlipidemia Pancreatic cancer Prostate cancer Sister Hyperlipidemia Brother Hyperlipidemia Maternal Grandfather Hyperlipidemia Son No problems noted. Brother No problems noted. Paternal Grandfather Cancer Maternal Grandmother Cancer Paternal Grandmother No problems noted. Social History Smoking/Tobacco Use Status: Former Tobacco Use tobacco type: cigarettes and smokeless tobacco Quit Date: 04/14/06 Smokeless tobacco user: chewing tobacco Second Hand Exposure: Yes Smoking risk assessment performed?: Yes Alcohol Intake: former Drug use: Never Substance use type: does not use Caregiver/Support person: No Household members: spouse Housing: house Communication Needs: None Do you need help understanding health information?: Never current occupation: LABOROR Pets and animals: Yes Pets and animals: cat(s) Sexually active: Yes Do you think of yourself as: straight/heterosexual Current gender identity: male What is your relationship status?: How often do you talk on the phone with friends or family?: decline to answer How often do you get together with friends or relatives?: decline to answer How often do you attend mandaeism or mormonism services?: decline to answer Do you belong to any clubs or organized social groups?: no Panel score (0-1 are the most socially isolated patients): 1 What type of physical activity do you participate in: walking and decline to answer Duration: 60-90 minutes/day Frequency: daily Paola/Shinto: No preference Special paola needs: No Seatbelt use: always Helmet use: Yes Helmet use: always Drive intox or ride w/intox [employer] truck driver: No Victim of physical abuse: No Victim of emotional abuse: No Victim of sexual abuse: No Would you like helpful sources: No Additional Social history: unable to assess privately PAWSS Have you Been Recently Intoxicated or Drunk Within the Last 30 days?: No Have you Ever Experienced Previous Episodes of Alcohol Withdrawal?: No Have you ever Experienced Withdrawal Seizures?: No Have you ever Experienced Delirium Tremens(DT)s?: No Have you ever undergone Alcohol Rehabilitation Treatment (i.e, inpt ot outpatient treatment programs)?: No Have you ever Experienced Blackouts?: No Have you ever Combined Alcohol with other Downers within the last 90 days?: No Have you ever Combined Alcohol with any other Substance of Abuse during the last 90 days?: No Positive Blood Alcohol level on Presentation? [PCS.BAL]: No Result: 0
[2023-10-17 13:41] LABS: ALT 28 U/L (16-63); AST 14 U/L (15-37); Albumin 3.7 g/dL (3.4-5.0); Alkaline Phosphatase 41 U/L (46-116); Anion Gap 6.2 mmol/L (3-11); BUN 13 mg/dL (7-18); Bilirubin, Total 0.99 mg/dL (0.2-1.0); CO2 29.8 mmol/L (21.0-32.0); CREATININE 0.9 mg/dL (0.70-1.30); Calcium 9.3 mg/dL (8.5-10.1); Chloride 100 mmol/L (98-107); ETHANOL BLOOD < 3.0 mg/dL (<10); Estimated GFR 94.19 (mL/min/1.73m2); Glucose 132 mg/dL (74-106); Potassium 3.5 mmol/L (3.5-5.1); Sodium 136 mmol/L (136-145); TSH (W/Ref FT4) 4.95 uIU/mL (0.36-3.74); Total Protein 8.1 g/dL (6.4-8.2); Troponin I < 50 ng/L (< or =60)
[2023-10-17 13:52] LABS: Ammonia 16 umol/L (11-32)
[2023-10-17] MEDS: Labetalol 100 MG/20 ML VIAL 10 MG IVP (13:53)
[2023-10-17 13:57] LABS: FREE T4 1.14 ng/dL (0.76-1.46)
--- NOTE | 2023-10-17 14:10 | NUR.NOTE ---
Nursing Note: reported to this nurse around 1400 yesterday- 10/16/23 patient had an episode of being unable to find the right words for approx 10 mins then went back to baseline. At 0500 this am he seemed welled to went back to bed she woke him up at 0830 would not have breakfast and not speaking clearly at that time.
[2023-10-17] MEDS: levETIRAcetam 2,000 MG in Normal Saline 100 ML 400 MG IVPB (14:45)
== END 2023-10-17 16:01 | disposition short-term general hospital (02) ==
PROVIDERS: Emergency Provider Student in an Organized Health Care Education/Training Program; PCP Nurse Practitioner Family
DX: R47.1 Dysarthria and anarthria (principal); R47.01 Aphasia; S06.5XAD Traumatic subdural hemorrhage with loss of consciousness status unknown, subsequent encounter; S02.19XD Other fracture of base of skull, subsequent encounter for fracture with routine healing; E78.5 Hyperlipidemia, unspecified; Z79.82 Long term (current) use of aspirin; Z87.891 Personal history of nicotine dependence; W17.89XD Other fall from one level to another, subsequent encounter
CPT/HCPCS: 36415; 70496; 70498; 80053; 82805; 82962; 93005; 96374; 96375; 99285; 80320; 82140; 84439; 84443; 84484; 85025; 85610; 85730; 93010; J1920; J1953; J3490

== ENCOUNTER 2024-03-22 01:29 | Outpatient (CLI) | payer MEDICARE, OTHER, SELFPAY ==
--- NOTE | 2024-03-22 07:15 | DI.RAD_ITS ---
Exam(s) XR SHOULDER RT COMPLETE 2+V EXAM: XR SHOULDER RT COMPLETE 2+V CLINICAL HISTORY: Worsening RT SHOULDER PAIN, M25.511. TECHNIQUE: 2D digital imaging was performed. Five views. COMPARISON: No exams were available for comparison FINDINGS: BONES: No acute fracture is present. No bony destructive lesion is seen. There is spurring at the gr eater tuberosity and subchondral cysts. JOINTS: No dislocation present. The glenohumeral joint space is maintained. There is mild spurring at the glenoid. The AC joint shows no significant spurring. There is mild spurring at the undersurf chris of the acromion. SOFT TISSUE: Small calcification of beneath the glenoid. IMPRESSION: Mild degenerative changes. DATA REPOSITORY: RADIATION DOSE DELIVERED:
== END 2024-03-22 01:49 ==
LOC: DI 01:30
PROVIDERS: PCP Nurse Practitioner Family; Visit Provider Nurse Practitioner Family
DX: M25.511 Pain in right shoulder (principal)
CPT/HCPCS: 73030

== ENCOUNTER 2024-03-25 03:22 | Outpatient (CLI) | payer MEDICARE, OTHER, SELFPAY ==
[2024-03-25 09:18] LABS: BUN 13 mg/dL (7-18); CREATININE 0.9 mg/dL (0.70-1.30); Calcium 8.5 mg/dL (8.5-10.1); Chloride 109 mmol/L (98-107); Estimated GFR 94.19 (mL/min/1.73m2); Glucose 90 mg/dL (74-106); Sodium 149 mmol/L (136-145); TSH (W/Ref FT4) 2.41 uIU/mL (0.36-3.74)
[2024-03-25 09:55] LABS: Calculated LDL 66 mg/dL (<100); Cholesterol 150 mg/dL (<200); HDL Cholesterol 46 mg/dL (40-60); Triglyceride 190 mg/dL (<150)
[2024-03-25 18:33] LABS: PSA, Screening 0.2 ng/mL (<=4.5)
== END 2024-03-25 03:23 | disposition home or self-care (01) ==
PROVIDERS: PCP Nurse Practitioner Family; Visit Provider Nurse Practitioner Family
DX: Z12.5 Encounter for screening for malignant neoplasm of prostate (principal); Z13.1 Encounter for screening for diabetes mellitus; E03.9 Hypothyroidism, unspecified; Z13.6 Encounter for screening for cardiovascular disorders
CPT/HCPCS: 36415; 80048; 80061; 84153; 84443

== ENCOUNTER 2024-06-16 01:09 | Outpatient (CLI) | payer OTHER, SELFPAY ==
--- NOTE | 2024-06-16 07:45 | DI.MRI_ITS ---
Exam(s) MR UPPER JOINT RT WO EXAM: MR UPPER JOINT RT WO CLINICAL HISTORY: R SHOULDER INJURY,rt rotator cuff tear,m75.101. TECHNIQUE: Multiplanar multisequence MRI was performed. COMPARISON: Plain films 22 March 2024 FINDINGS: BONES: There is no fracture or contusion pattern. JOINTS:The acromioclavicular joint shows mild degenerative changes. The glenohumeral joint is normal. TENDONS: Supraspinatus: There is abnormal high signal in the distal screws supraspinatus muscle tendon junctio n at the level of the AC joint. There is also thinning and fluid distally, suspicious for a partial tear. Infraspinatus: Unremarkable. Subscapularis: Unremarkable. Teres Minor: Unremarkable. Biceps and [place]: Unremarkable. MUSCLES: Unremarkable. GLENOID LABRUM: Unremarkable on this noncontrast examination. SOFT TISSUES: Unremarkable. BURSAE: Subacromial and subdeltoid bursae shows minimal fluid. There is a small amount of fluid in t he subcoracoid bursa. . IMPRESSION: Severe partial tear of the supraspinatus tendon as well as increased signal at the muscle tendon junc tion. DATA REPOSITORY:
== END 2024-06-16 01:29 ==
LOC: DI 01:09
PROVIDERS: PCP Nurse Practitioner Family; Visit Provider Student in an Organized Health Care Education/Training Program
DX: M75.111 Incomplete rotator cuff tear or rupture of right shoulder, not specified as traumatic (principal)
CPT/HCPCS: 73221

== ENCOUNTER → 2024-06-23 13:53 | Outpatient (BNVA) | payer OTHER, SELFPAY | PROVIDERS: PCP Nurse Practitioner Family; Referring Provider Nurse Practitioner Family; Visit Provider Student in an Organized Health Care Education/Training Program | DX: M75.101 Unspecified rotator cuff tear or rupture of right shoulder, not specified as traumatic (principal); M75.21 Bicipital tendinitis, right shoulder; Z87.820 Personal history of traumatic brain injury ==